=== PATIENT | female | born 1945 | race Caucasian/White ===

== ENCOUNTER 2020-07-08 06:28 | Emergency (ER) | payer MEDICARE, BC ==
[~2020-07-08] VITALS: Ht 157.5 cm; Wt 60.3 kg
[2020-07-08] MEDS ORDERED: XANAX (06:40)
[2020-07-08] MEDS ORDERED: PAROXETINE (06:40)
[2020-07-08 06:48] LABS: URINE BILIRUBIN NEGATIVE (Negative); URINE BLOOD 2+ (Negative); URINE CLARITY CLEAR; URINE COLOR YELLOW; URINE GLUCOSE-RANDOM NEGATIVE (Negative); URINE KETONES NEGATIVE (Negative); URINE LEUKOCYTES-REFLEX NEGATIVE (Negative); URINE NITRITE-REFLEX NEGATIVE (Negative); URINE PROTEIN TRACE (Negative); URINE UROBILINOGEN 0.2 E.U./dl (0.2-1.0)
[2020-07-08 06:58] LABS: SQUAMOUS 4-10 Moderate /LPF (0-3); URINE RBC 3-10 Few /HPF (0-2); URINE WBC-REFLEX None Seen /HPF (0-5)
[2020-07-08 07:00] LABS: BACTERIA-REFLEX None Seen /HPF (None Seen); CASTS None Seen /LPF (None Seen); CRYSTALS None Seen /LPF (None Seen); MUCUS None Seen strn/LPF (None Seen)
[2020-07-08 07:06] LABS: ABSOLUTE BASOPHILS 0.1 thou/uL (0.0-0.2); ABSOLUTE LYMPHOCYTES 1.3 thou/uL (0.8-5.3); ABSOLUTE MONOCYTES 0.6 thou/uL (0.0-1.2); BASOPHILS 0.4 %; EOSINOPHILS 0.3 %; HEMATOCRIT 43.5 % (37.0-47.0); HEMOGLOBIN 14.6 gm/dL (12.0-15.0); LYMPHOCYTES 10.5 %; MCH 31.1 pg (26.0-34.0); MCHC 33.6 g/dL (28.0-37.0); MCV 92.6 fL (80.0-100.0); MONOCYTES 5.1 %; MPV 7.2 fl. (7.2-11.1); NUCLEATED RBCS 0 /100WBC; PLATELET COUNT* 346 thou/uL (150-400); POLYS 83.7 %; RDW-CV 13.8 % (10.5-14.5)
[2020-07-08 07:16] LABS: CALCIUM 8.9 mg/dL (8.5-10.1); CREATININE 1.1 mg/dL (0.6-1.3); POTASSIUM 3.1 mmol/L (3.5-5.1)
[2020-07-08 07:27] LABS: ALBUMIN 3.9 g/dL (3.4-5.0); TOTAL BILIRUBIN 0.4 mg/dL (<0.1-1.0); TOTAL PROTEIN 7.3 g/dL (6.4-8.2)
[2020-07-08] MEDS ORDERED: FLOMAX0.4 MG PO (08:29)
[2020-07-08] MEDS ORDERED: ZOFRAN ODT4 MG DISSOLVE (08:29)
[2020-07-08] MEDS ORDERED: NORCO 5-325 TA1 EAC2 PO (08:29)
[2020-07-08] MEDS ORDERED: IBUPROFEN 800800 M1 PO (08:29)
[2020-07-08 08:44] VITALS: BP 158/69
--- NOTE | 2020-07-08 10:24 | EKG ---
[place] [address] ELECTROCARDIOGRAM REPORT Name: COLE VANEGAS Room: [facility]#: [id number] Admission: 07/08/20 Attend Phys: Discharge: 07/08/20 Date of : 45 Date of Service: 07/08/20703 Report #: [id number] THIS REPORT FOR: //name// [facility] ED Test Date: 2020-07-08 Test Time: 07:04:05 Pat Name: COLE VANEGAS Department: Room: Gender: F Tobacco Grader: : 1945 Requested By: Charles Samuel Order Number: [id number] MD: Uziel Booker Measurements Intervals [place] Rate: 77 P: 83 OR: 175 QRS: 42 QRSD: 88 T: 60 QT: 398 QTc: 451 Interpretive Statements Sinus rhythm Probable left atrial enlargement No previous ECG available for comparison Electronically Signed On 07-08-2020 10:24:09 CDT by Uziel Booker [email or web address] <ELECTRONICALLY SIGNED> By: Uziel Booker MD, [facility] 07/08/20 [facility] 3 3 Uziel Booker MD, FACC /EPI
== END 2020-07-08 08:45 | disposition home or self-care (01) ==
LOC: M.ERS 06:28
PROVIDERS: Family Medicine
DX: N20.0 Calculus of kidney (principal); R11.2 Nausea with vomiting, unspecified; F17.210 Nicotine dependence, cigarettes, uncomplicated

== ENCOUNTER 2021-08-14 09:40 | Emergency (ER) | payer MEDICARE, BC ==
[~2021-08-14] VITALS: Ht 162.6 cm; Wt 56.2 kg
[~2021-08-14 09:40] MED LIST: FLOMAX0.4 MG PO; IBUPROFEN 800800 M1 PO; NORCO 5-325 TA1 EAC2 PO; PAROXETINE; XANAX; ZOFRAN ODT4 MG DISSOLVE
--- NOTE | 2021-08-14 10:23 | EKG ---
[place] [address] ELECTROCARDIOGRAM REPORT Name: COLE VANEGAS Room: [facility]#: [id number] Admission: 08/14/21 Attend Phys: Discharge: Date of : 45 Date of Service: 08/14/2148 Report #: [id number] THIS REPORT FOR: //name// [facility] ED Test Date: 2021-08-14 Test Time: 09:48:47 Pat Name: COLE VANEGAS Department: Room: Gender: F Anodic Treater: TDS : 1945 Requested By: Charles Samuel Order Number: [id number] MD: Uziel Booker Measurements Intervals [place] Rate: 80 P: 79 DE: 169 QRS: 36 QRSD: 78 T: 51 QT: 376 QTc: 434 Interpretive Statements Sinus rhythm RsR' in V1 Probable left atrial enlargement Compared to ECG 07/08/2020 07:04:05 No significant changes Electronically Signed On 08-14-2021 10:23:08 REPORT SPECIALIST by Uziel Booker [email or web address] <ELECTRONICALLY SIGNED> By: Uziel Booker MD, [facility] 08/14/21 1023 0948 0948 Uziel Booker MD, [facility] /EPI
[2021-08-14] MEDS ORDERED: ZPAK PO (10:29)
[2021-08-14] MEDS ORDERED: PREDNISONE 20 M20 M1 PO (10:29)
[2021-08-14 10:38] VITALS: BP 113/54
== END 2021-08-14 10:39 | disposition home or self-care (01) ==
LOC: M.ERS 09:40
DX: J40 Bronchitis, not specified as acute or chronic (principal)